=== PATIENT | female | born 1980 | race Caucasian/White ===

== ENCOUNTER 2018-11-12 14:18 | Emergency (ER) | payer BC ==
--- OUTSIDE RECORDS SUMMARY | 2018-11-12 14:28 | XMS REPORT | Continuity of Care Document ---
:1980 External Reference #:[id number] Author Name Serafin Mcnally MD Address [address] [place] [address] Care Team Providers Name Role Phone Serafin Mcnally MD FACP Care Team Information Medical Logistics Specialist Unavailable Serafin Mcnally MD FACP Primary Care Physician Unavailable Payers Date Identification Numbers Payment Provider Subscriber Effective: Policy Number: [id number] [facility] EMA Wyl[place] 2016 PayID: [id number] [address] Advance Directives Description No Information Available Problems Date Description Provider Status Onset: 10/10/2017 Essential hypertension Serafin Mcnally MD Active Onset: 11/08/2016 Allergic rhinitis due to animals Serafin Mcnally MD Active Onset: 08/10/2016 Vitamin D deficiency Serafin Mcnally MD Active Onset: 08/10/2016 Gastroesophageal reflux disease Serafin Mcnally MD Active Family History Date Family Member(s) Observation Comments General Celiac Disease Mother General Alcoholism Father General Skin Cancer Mother - removed from face General Alzheimer's Disease Grandfather on Father's side General Multiple Sclerosis (MS) Grandmother, Aunt, Cousin, Cousin's child - all on Mother's side Siblings None Social History Type Date Description Comments Sex Unknown Marital Status Marital Status Significant Other Pets 2 cats Occupation Sales Work Status Currently Working Learning Barriers None Cigars Quit - Age 34 Light tobacco smoker <10 per day. Tobacco Use Start: Unknown Light tobacco smoker (10 or fewer cig/day) ETOH Use 2018 Currently consumes Beer and wine on alcohol daily bases. Tobacco Use Start: Unknown End: Patient is a former Unknown smoker Exercise Type/Frequency Exercises sporadically Exercise Limitations Chest Discomfort Exercise Limitations Shortness Of Breath Guns in Home Yes, Not Locked Up Currently Active Patient is currently sexually active STD's HPV LEEP procedure 2004 Allergies, Adverse Reactions, Alerts Date Description Reaction Status Severity Comments 08/10/2016 NKDA Active 07/27/2016 Seasonal Allergic asthma, Urticaria Inactive 07/27/2016 Animals Allergic asthma, Urticaria Inactive Medications Medication Date Status Form Strength Qnty SIG Indications Ordering Provider Omeprazole 10/14 Active Capsules 40mg 30cap take 1 capsule by K21.9 Betancourt /2019 DR s mouth daily A [place], before eating for gastroesophageal reflux disease Atrovent HFA 10/14 Active Aerosol 17mcg/Act 12.90 2 puffs every 4 R05 0gm hours as needed A [place], for cough Flovent HFA 10/10 Active Aerosol 110mcg/Ac 12gm inhale 1 puff by J45.20 Betancourt /2018 t mouth 2 times per A [place], day for bronchospasm Zyrtec 10/10 Active Tablets 10mg 30tab 1 by mouth every J30.81 Betancourt Allergy /2017 s day A MD Belle Mcnally (52 04/08 Active IUD 20mcg/24H Z00.01 Gelber, MG) /2016 R Filippo Ventolin HFA 11/08 Active Aerosol 108(90Bas 18uni take 2 puffs J45.20 Betancourt /2017 e) ts every 4 hours as A [place], mcg/Act needed for bronchospasm Nebulizer 11/08 Active Kit 1unit use as directed J45.20 Betancourt Compressor/D /2016 s A Dali ualfilter/7' Tubing/Aeros ol T/Mthpiece Vitamin D3 07/09 Active Liquid 1000Unit/ 4000 units once E55.9 [place] daily Singulair 07/09 Active Tablets 10mg 30tab take 1 tablet by J45.20 Betancourt s mouth daily in A [place], the evening for MD allergies J30.81 Albuterol 11/08/ Hx Nebulizer (2.5mg/3M 75ml inhale 3 J45.2 Betancourt A Sulfate 2017 - L) 0.083% milliliters via 0 MD Dali 10/14/ nebulizer every 4 2019 hours as needed for severe bronchospasm Lo Loestrin Fe 07/09/ Hx Tablets 1mg-10 once daily Unknown 2015 - mcg mcg 2016 Prilosec OTC 07/09/ Hx Tablets DR 20mg once daily K21.9 Unknown 2012 - 2016 Immunizations Description No Information Available Vital Signs Date Vital Result Comment 10/14/2018 1:47pm Heart Rate 80 /min BP Systolic 110 mmHg BP Diastolic 80 mmHg 02/11/2018 11:22am Heart Rate 76 /min BP Systolic 125 mmHg BP Diastolic 85 mmHg Weight 205.00 lb 10/10/2017 10:47am Body Temperature 98.8 F O2 % BldC Oximetry 97 % Heart Rate 60 /min BP Systolic 130 mmHg BP Diastolic 90 mmHg BMI (Body Mass Index) 33.5 kg/m2 Weight 206.00 lb Height 65.75 inches 5'5.75" 11/08/2016 7:02am Heart Rate 76 /min BP Systolic 122 mmHg BP Diastolic 80 mmHg 08/31/2016 1:44pm Heart Rate 70 /min BP Systolic 138 mmHg BP Diastolic 80 mmHg 08/10/2016 1:51pm Body Temperature 98.0 F O2 % BldC Oximetry 99 % Heart Rate 74 /min BP Systolic 140 mmHg BP Diastolic 80 mmHg BP Systolic Recheck 140 mmHg BP Diastolic Recheck 80 mmHg BMI (Body Mass Index) 30.8 kg/m2 Weight 185.00 lb Height 65 inches 5'5" Results Test Date Facility Test Result H/L Range Note Laboratory test 04/02/2018 [facility] Glucose 102 mg/dL High 70-100 [place] [address] [phone] Hemoglobin A1c (Glyco HGB) 5.4 % N 4.0-5.6 1 Laboratory test 04/02/2018 [facility] Testosterone 72.31 High 8-60 [place] [address] Total ng/dL [phone] Insulin Level 9.8 mcIU/mL N 2.0-16.0 Laboratory test 03/29/2018 [facility] Cytology SEE RESULT 2 [place] [address] BELOW [phone] CBC No Diff 02/11/2018 [facility] White Blood 5.8 10^3/uL N 3.5-10 [place] [address] Count .8 [phone] Red Blood Count 4.96 10^6/uL N 4.00-5.40 Hemoglobin 14.3 g/dL N 12.0-16.0 Hematocrit 43 % N 35-47 Mean Corpuscular Volume 87 fL N 80-97 Mean Corpuscular Hemoglobin 29 pg N 27-31 Mean Corpuscular HGB Conc 33 g/dL N 31-36 Red Cell Distribution Width 13 % N 10.5-15 Platelet Count 261 10^3/uL N 150-450 Mean Platelet Volume 8.1 um3 N 7.4-10.4 Comp Metabolic Panel 02/11/2018 [facility] Sodium 140 mmol/L N 135-145 [place], [place] [id number] [phone] Potassium 4.6 mmol/L N 3.5-5.0 Chloride 103 mmol/L N 101-111 Co2 Carbon Dioxide 30 mmol/L N 22-32 Anion Gap 7 mmol/L N 2-11 Calcium 9.6 mg/dL N 8.6-10.3 Albumin 4.3 g/dL N 3.2-5.2 Total Bilirubin 0.50 mg/dL N 0.2-1.0 Glucose 106 mg/dL High 70-100 Blood Urea Nitrogen 17 mg/dL N 6-24 Creatinine 0.83 mg/dL N 0.51-0.95 BUN/Creatinine Ratio 20.5 High 8-20 Total Protein 6.8 g/dL N 6.4-8.9 Globulin 2.5 g/dL N 2-4 Albumin/Globulin Ratio 1.7 N 1-3 Alkaline Phosphatase 55 U/L N 34-104 Alt 22 U/L N 7-52 Ast 19 U/L N 13-39 Egfr Non- 77.4 >60 Egfr 93.6 >60 3 Lipid Profile 02/11/2018 [facility] Triglycerides 97 mg/dL 4 (Trig/Chol/HDL) [place] [address] [phone] Cholesterol 145 mg/dL 5 HDL Cholesterol 50.5 mg/dL 6 LDL Cholesterol 75 mg/dL 7 Transglutaminase Igg 02/11/2018 [facility] Tissue <1.2 <4 [address] [place] [address] Transglutaminase IgA U/mL [phone] Ab Tissue Transglutaminase IgG Ab <1.2 U/mL <6 9 Order 11/02/2016 [facility] PFT Pre- and Normal [address] Post-Bronchodilation [place], [place] [id number] [phone] Laboratory 08/28/2016 [facility] TSH (Thyroid Stim Horm) 2.24 N 0.3 [place] [address] mcIU/mL 4-5 [phone] .60 Lipid Profile 08/28/2016 [facility] Triglycerides 120 mg/dL N <15 10 (Trig/Chol/[place] [address] 0 ) [phone] Cholesterol 134 mg/dL N <200 11 HDL Cholesterol 50.7 mg/dL N >40 12 LDL Cholesterol 59 mg/dL N <160 13 Laboratory test 08/28/2016 [facility] Vitamin B12 415 pg/mL N 180-914 14 [address] [place], [place] [id number] [phone] Vitamin D Total 25(Oh) 50.3 ng/mL High 30-50 Comp Metabolic Panel 08/28/2016 [facility] Sodium 137 mmol/L N 133-145 [place], [place] [address] [phone] Potassium 4.6 mmol/L N 3.5-5.0 Chloride 101 mmol/L N 101-111 Co2 Carbon Dioxide 30 mmol/L N 22-32 Anion Gap 6 mmol/L N 2-11 Glucose 98 mg/dL N 70-100 Blood Urea Nitrogen 12 mg/dL N 6-24 Creatinine 0.74 mg/dL N 0.51-0.95 BUN/Creatinine Ratio 16.2 N 8-20 Calcium 8.9 mg/dL N 8.6-10.3 Total Protein 6.4 g/dL N 6.4-8.9 Albumin 3.8 g/dL N 3.2-5.2 Globulin 2.6 g/dL N 2-4 Albumin/Globulin Ratio 1.5 N 1-3 Total Bilirubin 0.40 mg/dL N 0.2-1.0 Alkaline Phosphatase 49 U/L N 34-104 Alt 19 U/L N 7-52 Ast 20 U/L N 13-39 Egfr Non- 88.8 N >60 Egfr 114.2 N >60 15 CBC No Diff 08/28/2016 [facility] White Blood 7.0 10^3/uL N 3.5-10.8 [place] [address] Count [phone] Red Blood Count 4.67 10^6/uL N 4.0-5.4 Hemoglobin 12.3 g/dL N 12.0-16.0 Hematocrit 38 % N 35-47 Mean Corpuscular Volume 81 fL N 80-97 Mean Corpuscular Hemoglobin 26 pg Low 27-31 Mean Corpuscular HGB Conc 32 g/dL N 31-36 Red Cell Distribution Width 14 % N 10.5-15 Platelet Count 290 10^3/uL N 150-450 Mean Platelet Volume 8 um3 N 7.4-10.4 1 Therapeutic target for the treatment of diabetes mellitus patients is <7% HBA1C, and in selective patients <6.0%. Please refer to [place] [employer] diabetic care guidelines for further information. 2 SEE RESULT BELOW Name: WYLIEBI SIMS : [address]: Filippo Dutton MD Acct: [id number] Unit: [id number] AGE: 38 Location: [facility] Re03/29/18 SEX: F Status: REG REF SPEC: [id number] YISEL: 03/29/18-[address] [facility] [address]: Filippo Dutton MD REQ: [id number] RECD: 04/01/18 STATUS: HANNAH AGUILA DR: Serafin Mcnally MD _ ORDERED: TP IMAGE ANALYS, HPV/Thin Prep COMMENTS: [id number] Negative for Intraepithelial lesion or Malignancy Date Time Test Result Flag (u) Normal Range 03/29/18 1516 @ HPV RNA Negative Negative @ @ The high-risk HPV types detected by the assay include: 16, @ 18, 31, 33, 35, 39, 45, 51, 52, 56, 58, 59, 66, and 68. A. Ectocervical/Endocervical Specimen Adequacy: Satisfactory of evaluation Transformation zone component not identified Patient Information: HPV: High risk HPV RNA testing regardless of pap results. Actual Specimen Date: 03/29/18 Last Menstrual Date: 03/21/18 Date of Last Specimen: 02/21/17 Signed by and Reported on: MARISOL Méndez (ASCP) 1006 This Pap test was evaluated with the assistance of the ThinPrep Test Imaging System. Due to cytologic findings at the grounds crew supervisor microscope, comprehensive manual rescreening by a Director Of Pupil Personnel Program may be required. The Pap Smear is a screening test designed to aid in the detection of premalignant and malignant conditions of the uterine cervix. It is not a diagnostic procedure and should not be used as the sole means of detecting cervical cancer. Both false- positive and false- negative reports do occur. Depending on your risk status, a Pap smear should be obtained and evaluated every 1-3 years. END OF REPORT DEPARTMENT OF PATHOLOGY, [address] [place] [address] Corey Burris M.D. Director [facility] # [id number] 3 Because ethnic data is not always readily available, this report includes an eGFR for both -Americans and non- Americans. The National Kidney Disease Education Program (NKDEP) does not endorse the use of the MDRD equation for patients that are not between the ages of 18 and 70, are , have extremes of body size, muscle mass, or nutritional status, or are non- or non-. According to the National Kidney Foundation, irrespective of diagnosis, the stage of the disease is based on the level of kidney function: Stage Description GFR(mL/min/1.73 m(2)) 1 Kidney damage with normal or decreased GFR 90 2 Kidney damage with mild decrease in GFR 60-89 3 Moderate decrease in GFR 30-59 4 Severe decrease in GFR 15-29 5 Kidney failure <15 (or dialysis) 4 Desirable: <150 Borderline High: 150-199 High: 200-499 Very High: >500 5 Desirable: <200 Borderline High: 200-239 High: >239 6 Low: <40 Desirable: 40-60 High: >60 7 Desirable: <100 Near Optimal: 100-129 Borderline High: 130-159 High: 160-189 Very High: >189 8 REFERENCE VALUE <4.0 (Negative) 9 REFERENCE VALUE <6.0 (Negative) Test Performed by: [facility] [address] [place] [address] 10 Desirable <150 Borderline high 150-199 High 200-499 Very High >500 11 Desirable <200 Borderline high 200-239 High >239 12 Low <40 Desirable: 40-60 High: >60 13 Desirable: <100 mg/dL Near Optimal: 100-129 mg/dL Borderline High: 130-159 mg/dL High: 160-189 mg/dL Very High: >189 mg/dL 14 Normal Range 180 to 914 Indeterminate Range 145 to 180 Deficient Range <145 15 Because ethnic data is not always readily available, this report includes an eGFR for both -Americans and non- Americans. The National Kidney Disease Education Program (NKDEP) does not endorse the use of the MDRD equation for patients that are not between the ages of 18 and 70, are , have extremes of body size, muscle mass, or nutritional status, or are non- or non-. According to the National Kidney Foundation, irrespective of diagnosis, the stage of the disease is based on the level of kidney function: Stage Description GFR(mL/min/1.73 m(2)) 1 Kidney damage with normal or decreased GFR 90 2 Kidney damage with mild decrease in GFR 60-89 3 Moderate decrease in GFR 30-59 4 Severe decrease in GFR 15-29 5 Kidney failure <15 (or dialysis) Procedures Description No Information Available Encounters Type Date Location Provider Dx Diagnosis Office Visit 10/14/2018 1:20p Main Office Serafin Mcnally MD R05 Cough B34.9 Viral infection, unspecified K21.9 Gastro-esophageal reflux disease without esophagitis Office Visit 02/11/2018 11:20a Main Office Serafin Menendez I10 Essential ( primary) MD Dali hypertension K21.9 Gastro-esophageal reflux disease without esophagitis Office Visit 10/10/2017 10:20a Main Office Serafin Menendez Z00.01 Encounter for MD Dali general adult medical exam w abnormal findings J45.20 Mild intermittent asthma, uncomplicated J30.81 Allergic rhinitis due to animal (cat) (dog) hair and dander I10 Essential (primary) hypertension Office Visit 11/08/2016 2:40p Main Office Serafin Menendez J45.20 Mild intermittent MD Dali asthma, uncomplicated K21.9 Gastro-esophageal reflux disease without esophagitis J30.81 Allergic rhinitis due to animal (cat) (dog) hair and dander Office Visit 08/31/2016 1:00p Main Office Serafin Menendez K21.9 Gastro- esophageal MD Dali reflux disease without esophagitis J45.20 Mild intermittent asthma, uncomplicated E55.9 Vitamin D deficiency, unspecified Office Visit 08/10/2016 1:40p Main Office Serafin Menendez Z00.01 Encounter for MD Dali general adult medical exam w abnormal findings J45.20 Mild intermittent asthma, uncomplicated K21.9 Gastro-esophageal reflux disease without esophagitis R53.83 Other fatigue E55.9 Vitamin D deficiency, unspecified R06.83 Snoring Plan of Treatment Future Appointment(s):10/15/2018 12:20 pm - Serafin Mcnally MD at [facility]/14/2018 - Serafin Mcnally MDR05 CoughNew Medication:Atrovent HFA 17 mcg/Act - 2 puffs every 4 hours as needed for coughNew Xrays:Chest, 2 Views, Ordered: 10/14/18Comments:Bronchitis and GERD related.Lifestyle and dietary modifications advised. Tests recommended further plan of care pending availability of results. Treatment options with potential risks, general precautions, follow up recommendations, and alternative treatment options discussed with patient in detail.Patient verbalized understanding.B34.9 Viral infection, xulytzsjuikH26.9 Gastro-esophageal reflux disease without esophagitisNew Medication:Omeprazole 40 mg - take 1 capsule by mouth daily before eating for gastroesophageal reflux diseaseComments:Lifestyle and dietary modifications advised. Medications related potential side effects, general precautions, follow up recommendations discussed with patient in detail. Patient verbalized understanding.
[2018-11-12 15:06] VITALS: BP 130/88
--- NOTE | 2018-11-12 15:20 | UC ---
Respiratory Complaint HPI - HPI Summary HPI Summary: Pt presents with c/o malaise, chest congestion, nasal congestion, cough, wheezing, sob X 4 days. - History of Current Complaint Chief Complaint: UCGeneralIllness Stated Complaint: RIGHT EAR CONGESTION Time Seen by Provider: 11/12/18 15:06 Hx Obtained From: Patient Hx Last Menstrual Period: October 31 ?: No Onset/Duration: Gradual Onset, Lasting Days, Still Present, Worse Since - onset Timing: Constant Severity Initially: Mild Severity Currently: Moderate Pain Intensity: 6 Character: Cough: Productive Aggravating Factors: Exertion, Deep Breaths, Recumbent Position Alleviating Factors: Nothing Associated Signs And Symptoms: Positive: Fever, Chills, Wheezing, Dizziness, URI , Nasal Congestion - Risk Factors Pulmonary Embolism Risk Factors: Recent Travel Cardiac Risk Factors: Negative Pseudomonas Risk Factors: Negative Tuberculosis Risk Factors: Negative - Allergies/Home Medications Allergies/Adverse Reactions: Allergies Allergy/AdvReac Type Severity Reaction Status Date / Time No Known Allergies Allergy Verified 11/12/18 15:06 Home Medications: Home Medications Cetirizine* [ZyrTEC 10 MG TAB*] 10 mg PO DAILY 11/12/18 [History Confirmed 11/12] Montelukast Sodium TAB* [Singulair 10 MG TAB*] 10 mg PO DAILY 11/12/18 [History Confirmed 11/12/18] Omeprazole CAP (NF) [Prilosec CAP* 20 MG] 40 mg PO DAILY 11/12/18 [History Confirmed 11/12/18] PMH/Surg Hx/FS Hx/Imm Hx Previously Healthy: Yes GI/ History: Gastroesophageal Reflux - Surgical History Surgical History: None - Family History Known Family History: Positive: Cardiac Disease - Social History Occupation: Employed Full-time Lives: With Family Alcohol Use: Weekly Substance Use Type: None Smoking Status (MU): Never Smoked Tobacco Have You Smoked in the Last Year: No Review of Systems All Other Systems Reviewed And Are Negative: Yes Constitutional: Positive: Fever, Chills, Fatigue Skin: Positive: Negative Eyes: Positive: Negative ENT: Positive: Sore Throat, Ear Ache, Nasal Discharge, Sinus Congestion Respiratory: Positive: Shortness Of Breath, Cough Cardiovascular: Positive: Negative, Chest Pain - non cardiac, burning, with cough Gastrointestinal: Positive: Negative Genitourinary: Positive: Negative Motor: Positive: Negative Neurovascular: Positive: Negative Musculoskeletal: Positive: Myalgia Neurological: Positive: Negative Psychological: Positive: Negative Is Patient Immunocompromised?: No Physical Exam Triage Information Reviewed: Yes Appearance: Ill-Appearing Vital Signs: Initial Vital Signs Temp 97.0 F 11/12/18 14:59 Pulse 66 11/12/18 14:59 Resp 18 11/12/18 14:59 BP 130/88 11/12/18 14:59 Pulse Ox 100 11/12/18 14:59 Vital Signs Reviewed: Yes Eye Exam: Normal ENT: Positive: Nasal congestion, TM bulging Dental Exam: Normal Neck exam: Normal Respiratory Exam: Other Respiratory: Positive: Decreased breath sounds, Crackles, Wheezing Cardiovascular Exam: Normal Musculoskeletal Exam: Normal Neurological Exam: Normal Psychological Exam: Normal Skin Exam: Normal Respiratory Course/Dx - Differential Dx/Diagnosis Differential Diagnosis/HQI/PQRI: Bronchitis, Exacerbation Of COPD, Influenza Provider Diagnosis: Bronchitis, Wheezing Discharge - Sign-Out/Discharge Documenting (check all that apply): Patient Departure All imaging exams completed and their final reports reviewed: No Studies - Discharge Plan Condition: Stable Disposition: HOME Prescriptions: Azithromycin TAB* [Zithromax TAB (Z-AYLA) 250 mg #6 tabs] 2 tab PO .TODAY, THEN 1 DAILY #1 ayla Benzonatate CAP* [Tessalon 100 MG CAP*] 200 mg PO Q8H PRN #30 cap PRN Reason: Cough predniSONE TAB* [Deltasone 10 MG TAB*] 30 mg PO DAILY #12 tab Patient Education Materials: Acute Bronchitis (ED), Wheezing (ED) Referrals: Serafin Mcnally MD [Primary Care Provider] - If Needed - Billing Disposition and Condition Condition: STABLE Disposition: Home
== END 2018-11-12 15:29 | disposition home or self-care (01) ==
LOC: UCCORT 14:18
DX: J40 Bronchitis, not specified as acute or chronic (principal); R06.2 Wheezing; R05 Cough; R09.81 Nasal congestion; K21.9 Gastro-esophageal reflux disease without esophagitis
CPT/HCPCS: 99212; G0463